=== PATIENT | female | born 1980 | race Caucasian/White ===

== ENCOUNTER 2021-12-19 18:28 | Emergency (ER) | payer SELFPAY ==
[~2021-12-19] VITALS: Ht 167.7 cm; Wt 100.0 kg
[~2021-12-19 18:28] MED LIST: LEVO500T69 PO; TRAM-21 PO
--- NOTE | 2021-12-19 19:28 | ED Back Pain ---
General Chief Complaint: Back Problems Stated Complaint: FALL - BACK PAIN Source of Information: Patient History of Present Illness Date Seen by Provider: Dec 19, 2021 Time Seen by Provider: 19:25 Initial Comments Patient is a 41-year-old female presents ED with buttock pain, mid left-sided rib pain. Patient fell off a trailer yesterday afternoon. She states she slipped hitting the tongue of the trailer to her buttock resulting in bruising to the left buttock. She states she hit her mid back and left side of ribs. Started having increasing pain today to the left ribs with shortness of breath and coughing. Denies hitting her head, loss of conscious on blood thinners. She reports a large hematoma to the left buttock. Is been taking ibuprofen without much improvement. She does report hitting her right lower leg with bruising while across the middle of the trailer. Denies of any bowel or urine incontinence, saddle paresthesia, lower extremity weakness, chest pain, shortness of breath, cough Allergies and Home Medications Allergies Coded Allergies: metformin (Verified Adverse Reaction, Intermediate, Vomiting, 12/19/21) hydrocodone (Verified Adverse Reaction, Unknown, Vomiting, 12/19/21) zolpidem (Verified Adverse Reaction, Unknown, memory loss, 12/19/21) Patient Home Medication List Home Medication List Reviewed: Yes Albuterol Sulfate (Proair Hfa) 1 Puff Puff, 2 PUFF IH Q4H Prescribed by: ROSALIO MCKEON on 12/19/212123 Cetirizine HCl (Zyrtec) 10 Mg Tablet, 10 MG PO DAILY Prescribed by: ROSALIO MCKEON on 12/19/212123 Levofloxacin (Levaquin 500 Mg) 500 Mg Tab, 1 EACH PO DAILY Prescribed by: MART VARGAS on 01/15/141821 Tramadol HCl (Ultram) 50 Mg Tablet, 50 MG PO TID PRN for PAIN-MODERATE (5-7) Prescribed by: ROSALIO MCKEON on 12/19/212124 Tramadol Hcl (Ultram) 50 Mg Tablet, 50 MG PO Q4H Prescribed by: MART VARGAS on 01/15/141821 Review of Systems Constitutional: No chills, No diaphoresis, No malaise, No weakness EENTM: No blurred vision, No double vision Respiratory: cough; No dyspnea on exertion; short of breath Cardiovascular: No chest pain Gastrointestinal: No abdominal pain, No diarrhea, No nausea, No vomiting Genitourinary: No decreased output, No discharge Musculoskeletal: back pain, joint pain, muscle pain, muscle stiffness Skin: change in color; No change in hair/nails; other (bruising) All Other Systems Reviewed Negative Unless Noted: Yes Past Qacphcl-Trqjva-Tdpkko Hx Past Medical History Reproductive Disorders: No Physical Exam Vital Signs Vital Signs - First Documented 12/19/21 18:47 Temp 36.7 Pulse 100 Resp 16 B/P (MAP) 141/86 (104) Pulse Ox 97 O2 Delivery Room Air Capillary Refill : Height, Weight, BMI Height: 5'6" Weight: 189lbs. oz. 85.190784ol; BMI Method:Stated General Appearance: No Apparent Distress, WD/WN HEENT: PERRL/EOMI, TMs Normal, Normal ENT Inspection, Pharynx Normal Neck: Full Range of Motion, Normal Inspection, Non Tender, Supple Cardiovascular: Regular Rate, Rhythm, No Edema, No Gallop, No JVD, No Murmur Respiratory: Chest Non Tender, Lungs Clear, Normal Breath Sounds, No Accessory Muscle Use Gastrointestinal: Normal Bowel Sounds, No Organomegaly, No Pulsatile Mass Back: Vertebral Tenderness (Thoracic midline tenderness. Left sided thoracic rib tenderness. No crepitus or step-off. Lung sounds clear bilateral) Extremity: Other (Bruising to the right lower leg to the calf, anterior medial knee. Normal active range of motion bilateral knees.) Neurologic/Psychiatric: Alert, Oriented x3, No Motor/Sensory Deficits, Normal Mood/Affect Skin: Other (Bruising to the right lower leg. Large contusion to left buttock.) Progress/Results/Core Measures Results/Orders My Orders Orders - IQRA ADAN Ct Thoracic Spine Wo (12/19/21 19:22) Sacrum And Coccyx (12/19/21 19:22) Ct Chest Wo (12/19/21 19:22) Hydrocodone/Apap 5/325 Tablet (Lortab 5 (12/19/21 19:30) Ketorolac Injection (Toradol Injection) (12/19/21 20:00) Orphenadrine Inj (Ed Only) (Norflex Inje (12/19/21 20:00) Medications Given in ED Current Medications Medications Dose Ordered Sig/Mega Route Start Time Stop Time Status Last Admin Dose Admin Ketorolac Tromethamine 30 mg ONCE ONCE IM 12/19/21 20:00 12/19/21 20:01 DC 12/19/21 20:00 30 MG Orphenadrine Citrate 60 mg ONCE ONCE IM 12/19/21 20:00 12/19/21 20:01 DC 12/19/21 19:59 60 MG Vital Signs/I&O 12/19/21 12/19/21 18:47 21:38 Temp 36.7 Pulse 100 84 Resp 16 16 B/P (MAP) 141/86 (104) 127/84 Pulse Ox 97 98 O2 Delivery Room Air Room Air Departure Communication (PCP) Patient presents ED for back pain, buttock pain after a fall. She has thoracic and left-sided posterior rib tenderness. Lung sounds noted throughout slightly diminished on the right but most of her pain is on the left. CT scan of the chest was negative for fracture, pneumothorax. CT thoracic spine negative for acute fracture. No cervical or lumbar midline tenderness. No bowel or urine incontinence, saddle paresthesia. She denies hitting her head. She does have a large hematoma to the left buttock. X-ray of the coccyx and sacrum was negative for fracture. Patient was given dose of Toradol and Norflex. She reports that she has been having drainage with a cough worse at night. She states coughing became worse today. She states this is worse when she is around her father who smokes as well when he comes back from the [place] male. Concerning that this may be secondary to allergies. She denies history of COPD, asthma or smoking. Concerning for a postnasal drip. Discussed Zyrtec. Will discharge albuterol inhaler if she develops any type of shortness of breath with wheezing. Will discharge with tramadol to take for the back pain. She continue with ibuprofen. Ice to the hematoma. Discussed setting on a pillow to help relieve the stress and pain on the left buttock. Ice 3 or 4 times a day for the next 4 to 5 days. If any worsening symptoms return back to ED for further evaluation. Impression Primary Impression: Back pain Additional Impression: Allergies Disposition: 01 HOME, SELF-CARE Condition: Stable Departure-Patient Inst. Decision time for Depature: 21:22 Referrals: [facility] (PCP/Family) Primary Care Physician Patient Instructions: Upper Back Pain Scripts Tramadol HCl (Ultram) 50 Mg Tablet 50 MG PO TID PRN for PAIN-MODERATE (5-7), #10 TAB Prov: IQRA ADAN 12/19/21 Cetirizine HCl (Zyrtec) 10 Mg Tablet 10 MG PO DAILY, #30 TAB Prov: IQRA ADAN 12/19/21 Albuterol Sulfate (PROAIR HFA) 1 Puff Puff 2 PUFF IH Q4H, #1 EA 1 PUFF = 90 MCG Prov: IQRA ADAN 12/19/21 IQRA ADAN Dec 19, 2021 19:28
[2021-12-19] MEDS: HYDROcodone/APAP 5 MG/325 MG (LORTAB) TAB PO ONE ×2 (19:38→19:41)
[2021-12-19] MEDS ORDERED: KETOROLAC 30 MG/ML VIAL IM ONE (20:00)
[2021-12-19] MEDS ORDERED: ORPHENADRINE 60 MG/2 ML (NORFLEX) AMP (ED ONLY) IM ONE (20:00)
--- NOTE | 2021-12-19 20:46 | Diagnostic Imaging Report ---
PROCEDURE: CT chest without contrast. TECHNIQUE: Multiple contiguous axial images were obtained through the chest without the use of intravenous contrast. Auto Exposure Controls were utilized during the CT exam to meet ALARA standards for radiation dose reduction. INDICATION: Pain, swelling, bruising to the chest status post traumatic injury. COMPARISON: None. FINDINGS: Cardiomediastinal structures show normal heart size. There is no large pericardial effusion. No pathologically enlarged or morphologically abnormal adenopathy is seen within the mediastinum, nargis or axilla. Lungs are clear. There is no focal consolidation, large effusion or pneumothorax. Punctate 4 mm micronodule is noted within the anterior lateral margins of the right middle lobe (image 91, series 3). Additional 4 mm micronodule is also seen within the inferolateral margins of the right lower lobe (image 119, series 3). This may be partially calcified. Osseous structures show no acute abnormality. No lytic or blastic bony lesion is seen. Included portions of the upper abdomen are unremarkable as well. IMPRESSION: 1. No acute cardiopulmonary process. 2. Small micronodules within the right lower lobe, as described above. If patient is in a high-risk category, such as history of smoking, one-year follow-up is advised to ensure stability. Dictated by: Dictated on workstation # [id number]
--- NOTE | 2021-12-19 20:51 | Diagnostic Imaging Report ---
INDICATION: Pain, fall. COMPARISON: None. FINDINGS: 3 views of the sacrum and coccyx were obtained and show no fracture, dislocation or other acute bony abnormality. Joint spaces are well maintained throughout. The soft tissues appear unremarkable. No unexpected radiopaque foreign body is are identified. Bilateral L5 pars defects are noted. IMPRESSION: Unremarkable radiographic exam of the coccyx and sacrum. Dictated by: Dictated on workstation # [id number]
--- NOTE | 2021-12-19 21:01 | Diagnostic Imaging Report ---
PROCEDURE: CT thoracic spine without contrast. TECHNIQUE: Multiple axial computerized tomography images were obtained from the base of the thoracic spine to the vertex without intravenous contrast. Auto Exposure Controls were utilized during the CT exam to meet ALARA standards for radiation dose reduction. INDICATION: Pain, bruising and swelling status post traumatic injury. COMPARISON: CT chest from same day. FINDINGS: Static alignment of the thoracic spine is maintained. There is no significant anterolistheses or retrolisthesis. There is no evidence of jumped facets. Vertebral body heights are maintained as well. There is no acute fracture. No bony fragments are seen within the spinal canal. Mild multilevel degenerative changes are noted. Prevertebral and paravertebral soft tissue structures are unremarkable. Included portions of the lungs are clear. IMPRESSION: No acute fracture or dislocation of the thoracic spine. Dictated by: Dictated on workstation # [id number]
[2021-12-19] MEDS ORDERED: RT-ALBUINH IH (21:24)
[2021-12-19] MEDS ORDERED: CETI10TA49 PO (21:24)
[2021-12-19] MEDS ORDERED: TRAM-42 PO (21:24)
[2021-12-19 21:38] VITALS: BP 127/84
== END 2021-12-19 21:38 | disposition home or self-care (01) ==
LOC: EDUNIT# 18:28 → ER 18:30
DX: S30.0XXA Contusion of lower back and pelvis, initial encounter (principal); T78.40XA Allergy, unspecified, initial encounter; M54.6 Pain in thoracic spine; M54.50 Low back pain, unspecified; R07.81 Pleurodynia; Z88.5 Allergy status to narcotic agent; W17.89XA Other fall from one level to another, initial encounter; W22.8XXA Striking against or struck by other objects, initial encounter
CPT/HCPCS: 71250; 72128; 72220